=== PATIENT | female | born 1970 | race Caucasian/White ===

== ENCOUNTER 2023-07-16 14:13 | Outpatient (OUT) | payer BC, SELFPAY ==
--- NOTE | 2023-07-16 14:18 | MM_ITS ---
Patient Name: WESLYE TORRES MR#: [id number] : 1970 Exam Date: 07/16/2023 Ordering Doctor: DR JAREN ROBERTS . RADIOLOGY REPORT PROCEDURE: MM TOMOSYNTHESIS SCREENING BI COMPARISON: MG MAMM DIAGNOSTIC 3D EVA CAD, 03/11/2022. MG MAMM SCREEN 3D EVA CAD, 08/23/2021. INDICATIONS: screening Calculator Name NCI Breast Cancer Risk Assessment Tool 5 Year Breast Cancer Risk 0.90% Lifetime Breast Cancer Risk 7.90% Personal Breast Cancer No Personal Ovarian Cancer No Treatments None Family Cancers Grandmother-maternal with breast cancer at age 85; Grandfather-paternal with lung cancer at age 68; Uncle-paternal with lung cancer at age 55. LOCATION: [facility] BREAST COMPOSITION: Heterogeneously dense,which may obscure small masses. FINDINGS: DIAGNOSTIC CATEGORY 2--BENIGN FINDING. NO CHANGE FROM COMPARISON. Scattered benign-appearing nodules are present. Scattered benign-appearing calcifications are present. Scattered benign-appearing lymph nodes are present. RIGHT BREAST: No significant suspicious finding. LEFT BREAST: No significant suspicious finding. RECOMMENDATIONS: ROUTINE MAMMOGRAM AND CLINICAL EVALUATION IN 12 MONTHS. PLEASE NOTE: A NORMAL MAMMOGRAM DOES NOT EXCLUDE THE POSSIBILITY OF BREAST CANCER. A CLINICALLY SUSPICIOUS PALPABLE LUMP SHOULD BE BIOPSIED. Dictated by: Joe Schrader MD on 07/16/2023 at 15:25 Approved by: Joe Schrader MD on 07/16/2023 at 15:27
--- NOTE | 2023-07-16 14:41 | XR_ITS ---
[address] [address] Patient Name: WESLEY TORRES MRN: [id number] date: 1970 Sex: F Assigned Patient Location: [facility] Current Patient Location: [facility] Accession/Order Number: [id number] Exam Date: 07/16/2023 14:34 Report Date: 07/16/2023 15:30 At the request of: AJREN ROBERTS Procedure: XR DEXA axial skeleton EXAMINATION: XR DEXA axial skeleton, 07/16/2023 2:34 PM EST HISTORY: osteoporosis screening Z13.820 COMPARISON: None. TECHNIQUE: Dual-energy X-ray absorptiometry (DEXA) bone density study performed for the axial skeleton. HISTORY: osteoporosis screening Z13.820 FINDINGS: Bone mineral density AP spine L1-L4 measures 1.362 g/sq cm. T score 1.5. WHO classification: Normal. Lowest bone mineral density right femoral trochanter measuring 0.615 g/sq cm. T score -2.0. WHO classification: Osteopenia XR/XR DEXA axial skeleton IMPRESSION: Osteopenia. Moderate fracture risk Electronically authenticated by: GENTRY ESCOBAR Date: 07/16/2023 15:30
== END 2023-07-16 14:14 | disposition home or self-care (01) ==
LOC: MAMMO 14:14
PROVIDERS: PCP Family Medicine; Visit Provider Family Medicine
DX: Z12.31 Encounter for screening mammogram for malignant neoplasm of breast (principal); Z12.11 Encounter for screening for malignant neoplasm of colon; Z13.820 Encounter for screening for osteoporosis; Z80.3 Family history of malignant neoplasm of breast; Z80.1 Family history of malignant neoplasm of trachea, bronchus and lung; M85.80 Other specified disorders of bone density and structure, unspecified site
CPT/HCPCS: 77063; 77067; 77080

== ENCOUNTER 2025-05-30 10:11 | Outpatient (OUT) | payer BC, SELFPAY ==
--- NOTE | 2025-05-30 10:18 | MM_ITS ---
Patient Name: WESLEY TORRES MR#: [id number] : 1970 Exam Date: 05/30/2025 Ordering Doctor: DR JAREN ROBERTS . RADIOLOGY REPORT PROCEDURE: MM TOMOSYNTHESIS SCREENING BI COMPARISON: MM TOMOSYNTHESIS SCREENING BI, 07/16/2023. MG MAMM DIAGNOSTIC 3D EVA CAD, 03/11/2022. MG MAMM SCREEN EVA W CAD, 07/15/2017. INDICATIONS: Screening Calculator Name NCI Breast Cancer Risk Assessment Tool 5 Year Breast Cancer Risk 1.00% Lifetime Breast Cancer Risk 7.70% Personal Breast Cancer No Personal Ovarian Cancer No Treatments None Family Cancers Grandmother-maternal with breast cancer at age 85; Grandfather-paternal with lung cancer at age 68; Uncle-paternal with lung cancer at age 55. LOCATION: [facility] BREAST COMPOSITION: The breasts are heterogeneously dense, which may obscure small masses. FINDINGS: RIGHT BREAST: No significant suspicious finding. LEFT BREAST: No significant suspicious finding. DIAGNOSTIC CATEGORY 1--NEGATIVE. RECOMMENDATIONS: ROUTINE MAMMOGRAM AND CLINICAL EVALUATION IN 12 MONTHS. Dictated by: Luis Enrique Block DO on 05/30/2025 at 12:30 Approved by: Luis Enrique Block DO on 05/30/2025 at 12:38
== END 2025-05-30 10:12 | disposition home or self-care (01) ==
PROVIDERS: PCP Family Medicine; Visit Provider Family Medicine
DX: Z12.31 Encounter for screening mammogram for malignant neoplasm of breast (principal); Z80.3 Family history of malignant neoplasm of breast; Z80.1 Family history of malignant neoplasm of trachea, bronchus and lung
CPT/HCPCS: 77063; 77067